=== PATIENT | male | born 1995 | race Two or more races ===

== ENCOUNTER 2018-01-03 18:41 | Emergency (ER) | payer OTHER ==
[~2018-01-03] VITALS: Ht 172.7 cm; Wt 63.6 kg
[2018-01-03 18:42] VITALS: BP 131/82
[2018-01-03] MEDS ORDERED: DEXAMETHASONE 4 MG TABLET ONE (18:58)
[2018-01-03] MEDS ORDERED: DEXAMETHASONE 4 MG TABLET PO ONE (19:00)
== END 2018-01-03 19:27 | disposition home or self-care (01) ==
LOC: ED 19:00
DX: J02.0 Streptococcal pharyngitis (principal)
CPT/HCPCS: 99283